=== PATIENT | female | born 1975 | race Caucasian/White ===

== ENCOUNTER 2021-01-19 06:31 | Inpatient (IN) | payer OTHER ==
[2021-01-19] MEDS ORDERED: Lactated Ringers 1,000 ML IV ONE ×2 (06:58→07:41)
[2021-01-19] MEDS ORDERED: Lactated Ringers 1,000 ML IV SCH (07:00)
[2021-01-19] MEDS ORDERED: CLINDAMYCIN-D5W 900 MG/50 ML*** 900 MG/50 ML BAG IV SCH (07:00)
[2021-01-19] MEDS ORDERED: CLINDAMYCIN-D5W 900 MG/50 ML*** 900 MG/50 ML BAG IV ONE (07:18)
[2021-01-19 07:22] LABS: Hematocrit 29.1 % (35-47); Hemoglobin 7.8 gm/dl (12.0-16.0); Mean Cell Volume 65.1 fl (78-100); Mean Corpuscular Hemoglobin 17.4 pg (26-32); Mean Corpuscular Hgb Concent. 26.8 g/dl (32-36); Mean Platelet Volume 10.2 fl (7.5-11.0); Platelet Count 281 K/mm3 (150-450); Red Blood Count 4.47 M/mm3 (4.1-5.4); Red Cell Distribution Width 20.2 % (11.5-14.0); White Blood Count 3.2 K/mm3 (4.0-10.5)
[2021-01-19 08:06] LABS: ALBUMIN 4.2 g/dL (3.5-5.0); ALKALINE PHOSPHATASE 78 U/L (38-126); ANION GAP 13.4 MEQ/L (5-15); BLOOD UREA NITROGEN 11 mg/dL (7-17); CHLORIDE 106 mmol/L (98-107); Calcium 9.5 mg/dL (8.4-10.2); Carbon Dioxide 24 mmol/L (22-30); Creatinine 1 0.78 mg/dL (0.52-1.04); EST GLOMERULAR FILTRATION RATE > 60.0 ML/MIN; Glucose 99 mg/dL (74-106); Potassium 4.6 mmol/L (3.5-5.1); SGOT/AST 30 U/L (14-36); SGPT/ALT 18 U/L (0-35); SODIUM 138 mmol/L (137-145); Total Protein 6.8 g/dL (6.3-8.2)
[2021-01-19 08:07] LABS: INFLUENZA A NEGATIVE (NEGATIVE); INFLUENZA B NEGATIVE (NEGATIVE); RESPIRATORY SYNCTIAL VIRUS NEGATIVE (Negative)
[2021-01-19 08:08] LABS: ABO TYPING O; Antibody Screen NEGATIVE (NEGATIVE); RH TYPING POSITIVE
[2021-01-19] MEDS ORDERED: Versed 2 MG/2 ML Injection ONE (08:30)
[2021-01-19] MEDS ORDERED: SUBLIMAZE 100 MCG/2 ML ONE (08:30)
[2021-01-19 09:25] LABS: Slide Review YES
[2021-01-19] MEDS ORDERED: EPINEPHRINE 1MG/ML AMP ONE (10:02)
[2021-01-19] MEDS ORDERED: Naropin 0.5% 30 ML VIAL ONE (10:02)
[2021-01-19] MEDS ORDERED: Decadron 4 MG INJ ONE (10:02)
[2021-01-19 10:56] LABS: Appearance CLEAR (CLEAR); Bilirubin NEGATIVE (NEGATIVE); Blood NEGATIVE Ery/ul (0-5); Glucose NEGATIVE (NEGATIVE); Ketones NEGATIVE (NEGATIVE); Leukocyte Esterase NEGATIVE (NEGATIVE); Mucus SLIGHT /HPF (NEGATIVE); Nitrite NEGATIVE (NEGATIVE); Protein,Urine Dip NEGATIVE (Negative); Specific Gravity 1.006 (1.005-1.025); Urobilinogen NEGATIVE mg/dL (0-1)
[2021-01-19 10:59] LABS: Bacteria FEW /HPF (NEGATIVE); Epithelial Cells RARE /HPF (FEW); RBC 0-2 /HPF (0-2)
[2021-01-19] MEDS ORDERED: Zofran 4 MG/2 ML VIAL IV PRN (11:36)
[2021-01-19] MEDS ORDERED: TORAdol 30 mg Injection IV PRN (11:37)
[2021-01-19] MEDS ORDERED: NON-FORMULARY ITEM (Hydrochlorothiazide [Hydrochlorothiazide] 12.5 MG) PO PRN (11:38)
[2021-01-19] MEDS ORDERED: NON-FORMULARY ITEM (Albuterol [Albuterol] 17 GM) IH PRN (11:38)
[2021-01-19] MEDS ORDERED: VENTOLIN COMMON CANISTER IH PRN (11:40)
[2021-01-19] MEDS ORDERED: hydroDIURIL 25 MG PO PRN (11:42)
[2021-01-19] MEDS ORDERED: BENADRYL 50 MG/ML IV ONE (12:15)
[2021-01-19] MEDS: Lactated Ringers 1,000 ML IV SCH ×2 (12:18→20:11)
[2021-01-19] MEDS: Cozaar 50 MG PO SCH (12:18)
[2021-01-19] MEDS: Colace 100 MG PO SCH ×2 (12:18→21:55)
[2021-01-19] MEDS: CLINDAMYCIN-D5W 900 MG/50 ML*** 900 MG/50 ML BAG IV SCH ×2 (13:49→21:54)
[2021-01-19] MEDS: Reglan 10 MG/2 ML IV SCH ×2 (13:51→21:55)
[2021-01-19] MEDS: Mylicon 80MG PO SCH ×2 (13:51→21:54)
[2021-01-19 18:21] LABS: Hematocrit 28.9 % (35-47); Hemoglobin 7.5 gm/dl (12.0-16.0); Mean Cell Volume 65.7 fl (78-100); Mean Platelet Volume 10.1 fl (7.5-11.0); Platelet Count 301 K/mm3 (150-450); Red Cell Distribution Width 19.9 % (11.5-14.0); White Blood Count 8.6 K/mm3 (4.0-10.5)
[2021-01-20] MEDS: Lactated Ringers 1,000 ML IV SCH (04:55)
[2021-01-20 05:06] LABS: Hematocrit 27.2 % (35-47); Hemoglobin 7.1 gm/dl (12.0-16.0); Mean Corpuscular Hemoglobin 17.2 pg (26-32); Mean Corpuscular Hgb Concent. 26.1 g/dl (32-36); Platelet Count 275 K/mm3 (150-450); Red Blood Count 4.12 M/mm3 (4.1-5.4); Red Cell Distribution Width 19.9 % (11.5-14.0); White Blood Count 9.7 K/mm3 (4.0-10.5)
[2021-01-20 05:37] LABS: ALBUMIN 3.7 g/dL (3.5-5.0); ALKALINE PHOSPHATASE 58 U/L (38-126); ANION GAP 12.3 MEQ/L (5-15); BLOOD UREA NITROGEN 8 mg/dL (7-17); CHLORIDE 104 mmol/L (98-107); Calcium 9.1 mg/dL (8.4-10.2); Carbon Dioxide 22 mmol/L (22-30); EST GLOMERULAR FILTRATION RATE > 60.0 ML/MIN; Glucose 127 mg/dL (74-106); Potassium 4.5 mmol/L (3.5-5.1); SGOT/AST 29 U/L (14-36); SGPT/ALT 19 U/L (0-35); SODIUM 134 mmol/L (137-145); Total Protein 6.3 g/dL (6.3-8.2)
[2021-01-20] MEDS: Mylicon 80MG PO SCH ×2 (05:38→14:40)
[2021-01-20] MEDS: Reglan 10 MG/2 ML IV SCH (05:39)
[2021-01-20] MEDS ORDERED: ENOXAPARIN SODIUM SQ SCH (08:00)
[2021-01-20] MEDS ORDERED: NORCO 5/325 MG PO PRN (08:09)
[2021-01-20] MEDS ORDERED: MOTRIN 600 MG PO PRN (08:09)
--- NOTE | 2021-01-20 09:35 | OP ---
SURGERY DATE/TIME: 01/19/2021 0844 PREOPERATIVE DIAGNOSIS: Menorrhagia with failed previous ablation. POSTOPERATIVE DIAGNOSES: 1) Menorrhagia with failed previous ablation. 2) Right hydrosalpinx. PROCEDURES: 1) Laparotomy supracervical hysterectomy. 2) Right salpingectomy. SURGEON: Santiago Bernal D.O. REGISTERED PHLEBOTOMIST PART TIME: Gino Means surgical instrument repair specialist. ANESTHESIA: General. ESTIMATED BLOOD LOSS: 50 cc. COMPLICATIONS: None. INDICATIONS: The risks, benefits, indications and alternatives of the procedure were reviewed with the patient prior to procedure. The patient understood the risk of infection, bleeding, bowel injury, bladder injury, ureteral injury, pelvic infection, thromboembolic disorder associated with the surgery however desires to have this surgery as a possible means to alleviate her current medical condition. DESCRIPTION OF PROCEDURE AND FINDINGS: At this point the patient is then taken to the operating room where she was placed in supine position, given general anesthesia, prepared and draped in the usual sterile fashion. A Pfannenstiel incision was made approximately 2 cm above the symphysis pubis and extended sharply to the rectus fascia. The fascia was then incised bilaterally with curved Roberson scissors. The muscles of the anterior wall were in the midline by sharp and blunt dissection. The peritoneum was then grasped between two pickups and elevated and entered sharply with Metzenbaum scissors. The pelvis is then examined and was noted to have approximately 10 week size uterus with a tortuous right fallopian tube that was dilated. From this point O'Dez-O'Good retractor was placed into the incision and bowel packed away with moist laparotomy sponges. Two Yolande clamps were placed and used for retraction. From this point the LigaSure was then used and was placed over the left utero-ovarian ligament where it was clamped, coagulated and cut taking down towards the left side round ligament towards the uterine vasculature. At this point the anterior lip of the broad ligament was incised along the bladder reflection to the midline. The same procedure was performed on the right side where the right utero-ovarian ligament was grasped. It was clamped, coagulated and cut and taken down to the round ligament towards the uterine vessel. From this point the LigaSure was used bilaterally to clamp the uterine vessel where it was clamped, coagulated and cut. From this point the uterine arteries were skeletonized bilaterally, clamped with Lisha clamps, transected and suture ligated with 0 Vicryl suture. From this point the uterus was them amputated from the cervical stump with a Bovie tip. The cervical stump was then closed with a series of 0 Vicryl suture with figure-of-8 suturing. Hemostasis was assured. From this point the right fallopian tube was then identified, lifted up, was clamped, coagulated and cut along the mesosalpinx and was removed without complication. The left adnexa was not identified during the procedure. From this point the pelvis was irrigated copiously with warm normal saline. All laps, needle, sponge and instruments were then removed from the patient's abdomen. From this point the muscles were closed with 2-0 chromic suture in interrupted fashion. The fascia was closed with running 0 Vicryl suture. The subcutaneous layer was closed with 3-0 Vicryl suture and the skin was closed with absorbable jen called INSORB. Sponge, lap, needle and instrument counts were correct x2. The patient was then taken out of anesthesia and was then taken to the recovery room in stable condition.
[2021-01-20] MEDS: Colace 100 MG PO SCH (09:41)
[2021-01-20] MEDS: Cozaar 50 MG PO SCH (09:42)
[2021-01-20] MEDS ORDERED: NON-FORMULARY ITEM (Losartan Potassium [Losartan Potassium] 25 MG) PO SCH (10:00)
[2021-01-20 12:13] VITALS: BP 125/65; PULSE 83; O2SAT 100
--- NOTE | 2021-01-20 12:29 | PCM.NOTE ---
Date and Time: 01/20/21 1228 Subjective Assessment: Pod 1 sp laparotomy supracervical hysterectomy pt resting in bed and doing well ambulating and tolerating diet. positive flatus vss afebrile abd; soft incision c/d/intact ext; no clubbing cyanosis or edema hgb;7.1 a/p pod 1 sp laparotomy supracervical hysterectomy right salpingectomy dc home today fu office 2 wks Objective Exam Wound Assessment: Skin/Wound Assessment Wound/Incision Assessment Start: 01/19/21 11:54 Text: Status: Active Freq: Q4H Protocol: Document 01/20/21 12:00 [facility] (Rec: 01/20/21 12:12 [facility] [id number]) Wound/Incision Assessment Anterior Abdomen Wound Assessment Shift Assessment Wound Type Incision Wound Stage Non Pressure Wound Drainage Amount None General Appearance Well Approximated,Open to air, Clean/Dry Comment surgical incision Wound Photo Photo Taken No OBJECTIVE DATA Vital Signs: Vital Signs - 24 hr Temp Pulse Resp BP Pulse Ox 01/20/21 12:00 97.9 F 83 16 125/65 100 01/20/21 07:33 98.5 F 70 16 106/63 98 01/20/21 04:00 96.6 F 70 16 110/62 99 01/20/21 00:34 96.2 F 74 16 115/62 97 01/20/21 00:00 16 01/19/21 20:27 96.5 F 80 16 117/59 97 01/19/21 20:00 16 01/19/21 14:51 84 124/67 95 01/19/21 12:45 91 H 138/72 97 Pain Assessment - Last Documented Pain Intensity 1 Pain Scale Used 0-10 Pain Scale Intake and Output: Intake & Output 01/18/21 01/19/21 01/20/21 01/21/21 11:59 11:59 11:59 11:59 Intake Total 2762 Output Total 3400 Balance -638 Weight 85.8 kg Lab Results: Lab Results-Last 24 Hours 01/19/21 01/20/21 01/20/21 Range/Units 18:05 04:47 04:47 WBC 8.6 9.7 (4.0-10.5) K/mm3 RBC 4.40 4.12 (4.1-5.4) M/mm3 Hgb 7.5 L 7.1 L (12.0-16.0) gm/dl Hct 28.9 L 27.2 L (35-47) % MCV 65.7 L 66.0 L (78-100) fl MCH 17.0 L 17.2 L (26-32) pg MCHC 26.0 L 26.1 L (32-36) g/dl RDW 19.9 H 19.9 H (11.5-14.0) % Plt Count 301 275 (150-450) K/mm3 MPV 10.1 10.0 (7.5-11.0) fl Sodium 134 L (137-145) mmol/L Potassium 4.5 (3.5-5.1) mmol/L Chloride 104 (98-107) mmol/L Carbon Dioxide 22 (22-30) mmol/L Anion Gap 12.3 (5-15) MEQ/L BUN 8 (7-17) mg/dL Creatinine 0.70 (0.52-1.04) mg/dL Estimated GFR > 60.0 ML/MIN Glucose 127 H (74-106) mg/dL Calcium 9.1 (8.4-10.2) mg/dL Total Bilirubin 0.30 (0.2-1.3) mg/dL AST 29 (14-36) U/L ALT 19 (0-35) U/L Alkaline Phosphatase 58 (38-126) U/L Serum Total Protein 6.3 (6.3-8.2) g/dL Albumin 3.7 (3.5-5.0) g/dL Multi-Disciplinary Progress Notes: Multi-Disciplinary Progress Notes 01/19/21 21:28 Respiratory Note by Will Evangelista PT USES I.S. VERY WELL REACHING [phone] AND UNDERSTANDS REASONS FOR USING. I AM MAKING THIS ORDER SDC. Initialized on 01/19/21 21:28 - END OF NOTE
--- NOTE | 2021-01-20 12:34 | PCM.DS ---
Discharge Summary Date of Admission: 01/19/21 06:31 Admitting Physician: PARADISE MATHEWS DO Primary Care Provider: NO FAMILY DOCTOR Allergies Allergies Penicillins Adverse Reaction (Verified 01/19/21 07:08) Rash Hospital Summary - Hospital Course Hospital Course: pt was admitted on january 19 for undergoing laparotomy supracervical hysterectomy right salpingectomy secondary to menorrhagia with failed ablation and tolerated procedure well. during postop period did well with stable h/h at 7.1 prior to discharge with beginning hgb at 7.7. pt advised to fu in office in 2wks for po stop evaluation and was advised to call me for any issues that may arise. all questions answered to her satisfaction and will go home with doxy bid 3 days to take as well as norco for pain management. - Vitals & Intake/Output Vital Signs: Vital Signs Temperature 97.9 F 01/20/21 12:00 Pulse Rate 83 01/20/21 12:00 Respiratory Rate 16 01/20/21 12:00 Blood Pressure 125/65 01/20/21 12:00 O2 Sat by Pulse Oximetry 100 01/20/21 12:00 Intake & Output: Intake & Output 01/18/21 01/19/21 01/20/21 01/21/21 11:59 11:59 11:59 11:59 Intake Total 2762 Output Total 3400 Balance -638 Weight 85.8 kg - Lab Result Diagrams: 01/20/21 04:47 01/20/21 04:47 Lab Results-Last 24 Hrs: Lab Results-Last 24 Hours 01/19/21 01/20/21 01/20/21 Range/Units 18:05 04:47 04:47 WBC 8.6 9.7 (4.0-10.5) K/mm3 RBC 4.40 4.12 (4.1-5.4) M/mm3 Hgb 7.5 L 7.1 L (12.0-16.0) gm/dl Hct 28.9 L 27.2 L (35-47) % MCV 65.7 L 66.0 L (78-100) fl MCH 17.0 L 17.2 L (26-32) pg MCHC 26.0 L 26.1 L (32-36) g/dl RDW 19.9 H 19.9 H (11.5-14.0) % Plt Count 301 275 (150-450) K/mm3 MPV 10.1 10.0 (7.5-11.0) fl Sodium 134 L (137-145) mmol/L Potassium 4.5 (3.5-5.1) mmol/L Chloride 104 (98-107) mmol/L Carbon Dioxide 22 (22-30) mmol/L Anion Gap 12.3 (5-15) MEQ/L BUN 8 (7-17) mg/dL Creatinine 0.70 (0.52-1.04) mg/dL Estimated GFR > 60.0 ML/MIN Glucose 127 H (74-106) mg/dL Calcium 9.1 (8.4-10.2) mg/dL Total Bilirubin 0.30 (0.2-1.3) mg/dL AST 29 (14-36) U/L ALT 19 (0-35) U/L Alkaline Phosphatase 58 (38-126) U/L Serum Total Protein 6.3 (6.3-8.2) g/dL Albumin 3.7 (3.5-5.0) g/dL - Procedures and Test Procedures and Tests throughout Hospitalization: Therapy Orders & Screens 01/19/21 11:35 Incentive Spirometry UD Comment: Diagnosis: mennorrhagia and failed ablation Discharge Exam Wound Assessment: Skin/Wound Assessment Wound/Incision Assessment Start: 01/19/21 11:54 Text: Status: Active Freq: Q4H Protocol: Document 01/20/21 12:00 [facility] (Rec: 01/20/21 12:12 [facility] [id number]) Wound/Incision Assessment Anterior Abdomen Wound Assessment Shift Assessment Wound Type Incision Wound Stage Non Pressure Wound Drainage Amount None General Appearance Well Approximated,Open to air, Clean/Dry Comment surgical incision Wound Photo Photo Taken No - Discharge Discharge Date: 01/20/21 Disposition: Home, Self-Care Condition: Stable Prescriptions: New Albuterol Common Canister [Ventolin Common Canister] 2 puff IH DAILY PRN PRN puff PRN Reason: Shortness Of Breath Hydrocodone/Acetaminophen [Hydrocodone-Acetamin 5-325 mg ] 1 tab PO Q6HPRN PRN 5 Days #20 tablet MDD 4 PRN Reason: Pain Doxycycline Hyclate 100 mg [Vibramycin 100 MG] 100 mg PO BID #6 tab Continue Hydrochlorothiazide 12.5 mg PO DAILY PRN PRN PRN Reason: swelling Losartan Potassium 25 mg PO DAILY Albuterol 17 gm IH DAILY PRN PRN PRN Reason: Shortness Of Breath Bupropion HCl 150 mg Sr [Wellbutrin SR 150 MG] 150 mg PO DAILY Follow up with: PARADISE MATHEWS DO [ACTIVE STAFF] - 02/03/21 11:00 am Forms: Patient Portal Information
== END 2021-01-20 14:17 | disposition home or self-care (01) | DRG 743 ==
LOC: MED SURG 06:31 → EDSTATUS 13:04
PROVIDERS: ADMIT Obstetrics & Gynecology; ATTEND Obstetrics & Gynecology
PROC: 0UT90ZL Resection of Uterus, Supracervical, Open Approach (ICD-10-PCS; principal; 2021-01-19)
PROC: 0UT50ZZ Resection of Right Fallopian Tube, Open Approach (ICD-10-PCS; 2021-01-19)
DX: N92.0 Excessive and frequent menstruation with regular cycle (principal); N70.11 Chronic salpingitis
CPT/HCPCS: 0241U; 36415; 62322; 64488; 76937; 80053; 81001; 84703; 85027; 86850; 86900; 86901; 87086; J0171; J1100; J1200; J1650; J1885; J2250; J2795; J3010; A9270-GY

== ENCOUNTER 2022-11-14 08:30 | Day surgery (SDC) | payer OTHER ==
--- NOTE | 2022-11-07 09:32 | HP ---
DATE OF SURGERY: 11/14/2022 HISTORY OF PRESENT ILLNESS: The patient is a 47-year-old with no prior colonoscopy. She had some vomiting, mid to lower abdominal aches for the past six months. No bloody stools. No CT scan. Family history negative for colon cancer. There was an aunt with history of Crohn's disease. PAST MEDICAL HISTORY: Ulcers in the past. Hypertension. Allergies. Reflux. Bronchitis. Wears glasses. PAST SURGICAL HISTORY: Tubal in the past. Hysterectomy in the past. MEDICATIONS: Hydrochlorothiazide, Xanax, losartan. ALLERGIES: PENICILLIN. FAMILY HISTORY: Negative for colon cancer. She has an aunt with Crohn's. SOCIAL HISTORY: Smoker, occasional alcohol use denies abuse. REVIEW OF SYSTEMS: Fourteen systems reviewed. No chest pain or palpitations. Otherwise systems negative or noncontributory as above, some generalized abdominal pain, history of some nausea and vomiting. PHYSICAL EXAMINATION: Weight 170 pounds. BMI 31. GENERAL: No acute distress. HEENT: Sclerae nonicteric. NECK: No JVD. CHEST: Equal excursion, nonlabored breathing. CVS: Regular rate and rhythm. ABDOMEN: Soft, nontender. No peritoneal signs. EXTREMITIES: No significant edema. NEURO: Alert, oriented, moving extremities symmetrically. RECTAL: Deferred timed to endoscopy exam. PSYCH: Appropriate mood and affect. SKIN: Dry. IMPRESSION: History of some generalized abdominal aches and pains, history of nausea and vomiting. Family history of some Crohn's disease. The patient is in need of EGD to evaluate for peptic ulcer disease, celiac, gastritis or other etiology as well as colonoscopy to evaluate for colitis, inflammatory bowel disease or neoplasia. Risks and benefits explained in detail including but not limited to bleeding or infection, risk of bowel injury or perforation, risk of missed or nondiagnosis or incomplete exam possibly requiring barium enema, other studies or procedures. General risk of anesthesia or sedation, risk of bowel prep but not limited to, consent obtained. Possibility of inability to diagnose the etiology of her symptoms, she may need further work up, other testing or referrals. She understands and agrees to the planned procedure. Will proceed with EGD and colonoscopy under MAC anesthesia as an outpatient.
[2022-11-14] MEDS ORDERED: Lactated Ringers 1,000 ML IV SCH (09:00)
[2022-11-14] MEDS ORDERED: Versed 2 MG/2 ML Injection ONE (10:36)
[2022-11-14] MEDS ORDERED: DIPRIVAN 200 MG/20 ML IV ONE ×2 (10:36→11:01)
[2022-11-14] MEDS ORDERED: Xylocaine-Mpf 2% 5 Ml Vial ONE (10:38)
[2022-11-14 12:04] VITALS: BP 160/92; PULSE 63; O2SAT 100
--- NOTE | 2022-11-15 10:48 | OP ---
SURGERY DATE/TIME: 11/14/2022 1045 PREOPERATIVE DIAGNOSIS: History of some generalized abdominal pain unclear etiology, needs upper and lower endoscopy to rule out peptic ulcer disease, gastritis, celiac disease, colitis, neoplasia, inflammatory bowel disease or other etiology. POSTOPERATIVE DIAGNOSES: 1) ASA Class III. 2) Minimal gastritis. 3) Limited bowel prep. 4) Plus/minus tiny weakness of the hiatus, normal variation versus early/tiny hiatal hernia. PROCEDURES: 1) EGD with cold biopsy of the small bowel to evaluate for celiac sprue. 2) Cold biopsy of antrum. 3) Cold biopsy of distal to mid esophagus to evaluate for eosinophilic esophagitis. 4) Colonoscopy to terminal ileum. 5) Retrograde ileoscopy. 6) Random ileum and colon biopsies to evaluate for microscopic ileitis and microscopic colitis. SURGEON: Dr. Radames Diaz. ANESTHESIA: MAC. ESTIMATED BLOOD LOSS: Minimal. INDICATIONS: As noted above. Risks and benefits explained in detail and not limited to and consent obtained. DESCRIPTION OF PROCEDURE AND FINDINGS: The patient is taken to the endoscopy room. MAC anesthesia introduced. After official time out and no disagreement with planned procedure, bite block positioned. Video gastroscope easily passed down the esophagus. The gastroesophageal junction was about 39 to 40 cm. The scope passed through the patent pylorus around to the junction of third and fourth portion of the duodenum. Duodenum grossly unremarkable. No signs of any inflammation or ulcers. Cold biopsy taken to evaluate for celiac sprue. Good hemostasis noted. Scope pulled back into the stomach. It did have some minimal to mild gastric erythema, a little bit of congestion. A cold biopsy is taken to evaluate for some very early gastritis and to evaluate for Helicobacter pylori. Good hemostasis noted. On retroflex there was just a trace weakness of the hiatus. There is no evidence of any large hiatal hernia. There was the beginning of a very tiny, early hiatal hernia versus normal variation but again no evidence of any large hiatal hernia. The scope pulled back. Cold biopsy taken in the antrum for Helicobacter pylori. There were no signs of any obvious ulcers or masses. The scope pulled up. Gastroesophageal junction about 39 to 40 cm. There were no signs of any obvious Reeves's or any significant erosions. Cold biopsy taken in distal and mid esophagus to evaluate for eosinophilic esophagitis. The scope is withdrawn. The patient tolerated this procedure well. Attention turned to colonoscopy. Digital rectal exam did not reveal any rectal masses. Video colonoscope inserted and passed up the slightly tortuous sigmoid, descending, transverse, ascending colon. With external pressure the scope passed around and passed up the terminal ileum. Retrograde ileoscopy performed and grossly unremarkable. The scope was carefully withdrawn. Random cold biopsies taken in the ileum to evaluate for microscopic ileitis. The scope is then carefully withdrawn. Prep overall was on the limited side of fair with some liquidy, semisolid stool limiting the exam for very tiny lesions. There was however no evidence of any macroscopic inflammation. No signs of any large polyps, masses or obstructing lesions. Given her generalized abdominal pain, some random cold biopsies taken throughout the colon to evaluate for microscopic colitis. Good hemostasis noted. The scope is withdrawn. I went out to the waiting room to look for family following the procedure. I will see her back in the office in a week or two.
== END 2022-11-14 11:59 | disposition home or self-care (01) ==
LOC: SDC 08:30
PROVIDERS: ATTEND Surgery
DX: K29.70 Gastritis, unspecified, without bleeding (principal); R10.84 Generalized abdominal pain; K44.9 Diaphragmatic hernia without obstruction or gangrene
CPT/HCPCS: J2250; J2704